=== PATIENT | male | born 1970 | race Caucasian/White ===

== ENCOUNTER 2019-05-01 10:48 | Observation (INO) | payer BC ==
[~2019-05-01] VITALS: Ht 182.9 cm; Wt 108.0 kg
[~2019-05-01 10:48] MED LIST: CIPROFLOXACIN500 M1 PO; HYDROCODON-ACE1 EAC7 PO
[2019-05-01 10:55] VITALS: BP 156/99
[2019-05-01] MEDS ORDERED: LISINOPRIL2.5 MG (10:59)
[2019-05-01 11:20] LABS: ABSOLUTE BASOPHILS 0.1 thou/uL (0.0-0.2); ABSOLUTE EOSINOPHILS 0.2 thou/uL (0.0-0.7); ABSOLUTE LYMPHOCYTES 1.7 thou/uL (0.8-5.3); ABSOLUTE MONOCYTES 0.4 thou/uL (0.0-1.2); BASOPHILS 0.9 %; EOSINOPHILS 2.9 %; HEMATOCRIT 45.4 % (42.0-52.0); HEMOGLOBIN 15.9 gm/dL (14.0-18.0); LYMPHOCYTES 26.1 %; MCH 31.4 pg (26.0-34.0); MCV 89.6 fL (80.0-100.0); MONOCYTES 6.7 %; MPV 8.6 fl. (7.2-11.1); NUCLEATED RBCS 0 /100WBC; PLATELET COUNT* 232 thou/uL (150-400); POLYS 63.4 %; RBC 5.07 mil/uL (4.50-6.00); RDW-CV 12.8 % (10.5-14.5); WBC 6.3 thou/uL (4.0-11.0)
[2019-05-01 11:36] LABS: POTASSIUM 3.8 mmol/L (3.5-5.1)
[2019-05-01 11:45] LABS: ALBUMIN 4.1 g/dL (3.4-5.0); TOTAL BILIRUBIN 0.4 mg/dL (<0.1-1.0); TOTAL PROTEIN 8.1 g/dL (6.4-8.2)
--- NOTE | 2019-05-01 15:16 | EKG ---
[place] [address] ELECTROCARDIOGRAM REPORT Name: JEN SULTANAYDTheo Hernandez Room: [address] M.R.#: [id number] Admission: 05/01/19 Attend Phys: Heidi Barron Discharge: Date of : 68 Report #: [id number] THIS REPORT FOR: //name// [facility] ED Test Date: 2019-05-01 Test Time: 10:54:33 Pat Name: TERRANCE SULTANA Department: Room: [facility] Gender: M [employer] Switchman: KYRIE : 1970 Requested By: Carmelina Salmeron Order Number: [id number] MD: Bladimir Callahan Measurements Intervals [place] Rate: 84 P: 38 OR: 167 QRS: -60 QRSD: 103 T: 55 QT: 364 QTc: 431 Interpretive Statements Sinus rhythm Inferior infarct, old Lateral leads are also involved Baseline wander in lead(s) V2 No previous ECG available for comparison Electronically Signed On 05-01-2019 15:15:58 [employer] by Bladimir Callahan [email or web address] <ELECTRONICALLY SIGNED> By: Bladimir Callahan MD, [facility] 05/01/19 1515 1054 1054 Bladimir Callahan MD, [facility] /EPI
[2019-05-01 16:13] VITALS: BP 116/83
[2019-05-01 16:30] VITALS: BP 141/94
--- NOTE | 2019-05-01 17:29 | NUR ---
RECEIVED PT FROM ER AT 1630. GET SITUATED TO ROOM. TELE IN PLACED TRACING SR ON MONITOR. AOX4, UP SBA, O2 SAT 90'S RA. PT DENIES CHEST PAIN. URINE COLLECTED. PT FOR CARDIOLOGY CONSULT ADMISSION ASSESSMENT CHARTED. VSS, HOURLY ROUNDING, CALL LIGHT WITHIN REACH, WILL CONTINUE TO MONITOR.
[2019-05-01 18:44] LABS: AMP/METHAMP Negative (Negative); BARBITURATES Negative (Negative); BENZODIAZEPINES Negative (Negative); COCAINE Negative (Negative); METHADONE Negative (Negative); OPIATES Negative (Negative); PCP Negative (Negative); THC Negative (Negative)
[2019-05-01 19:40] VITALS: BP 139/94
[2019-05-02] VITALS: BP 133/89
[2019-05-02 02:06] LABS: GLYCOHEMOGLOBIN (HGB A1C) 5.2 % (4.8-5.6)
[2019-05-02 04:00] VITALS: BP 130/85
--- NOTE | 2019-05-02 04:32 | NUR ---
ASSUMED CARE OF PT AT 1900. PT IS ALERT AND ORIENTED. VSS. PERRLA. NO COMPLAINTS OF PAIN. STEADY GAIT. PT IS IN SINUS RYTHM ON THE TELEMETRY. PT IS RESTING COMFORTABLY IN BED. RESPIRATIONS ARE EVEN AND NONLABORED. WILL CONTINUE TO MONITOR PT.
[2019-05-02 04:36] LABS: HEMATOCRIT 45.3 % (42.0-52.0); HEMOGLOBIN 15.8 gm/dL (14.0-18.0); MCH 31.1 pg (26.0-34.0); MCHC 34.9 g/dL (28.0-37.0); RBC 5.09 mil/uL (4.50-6.00); RDW-CV 12.9 % (10.5-14.5); WBC 5.8 thou/uL (4.0-11.0)
[2019-05-02 05:05] LABS: CALCIUM 8.8 mg/dL (8.5-10.1); CREATININE 1.1 mg/dL (0.6-1.3); POTASSIUM 4.6 mmol/L (3.5-5.1)
[2019-05-02 05:17] LABS: CHOLESTEROL 188 mg/dL (<200); HDL CHOLESTEROL 35 mg/dL (>40); LDL CHOLESTEROL 125 mg/dL (<100); TC:HDL 5.4 Ratio (Not establshd); TRIGLYCERIDE 142 mg/dL (<150); VLDL 28 mg/dL (<40)
[2019-05-02 05:21] LABS: SERUM ASSESSMENT Clear
[2019-05-02 08:00] VITALS: BP 129/80
--- NOTE | 2019-05-02 10:17 | NUR ---
ASSUMED PT CARE AT 0800, AOX4, UP AD ROCIO, O2 SAT 90'S RA, TRACING SR ON TELE. PT DENIES CHEST PAIN. PT NPO. PT FOR CARDIAC STRESS TEST. VSS, AM ASSESSMENT CHARTED, HOURLY ROUNDING, WILL CONTINUE TO MONITOR.
[2019-05-02 12:56] VITALS: BP 121/82
[2019-05-02 16:28] VITALS: BP 117/78
[2019-05-02 16:33] VITALS: BP 117/78
--- NOTE | 2019-05-02 18:19 | CARDNUC ---
[place] [address] CARDIAC NUCLEAR IMAGING REPORT Name: TERRANCE SULTANA [address]#: [id number] Admission: 05/01/19 Attend Phys: Heidi mina Sa Discharge: Date of : 68 Date of Service: 05/02/191818 Report #: [id number] THIS REPORT FOR: //name// APPROVED REPORT Study performed: 05/02/2019 13:33:44 Exam: Nuclear Stress Test Indication: Chest pain, left arm pain, dyspnea, diaphoresis. Patient Location: In-Patient Room #: 219 Stress Tech: Hannah Amezquita Stress Nurse: Nadine Ace RN Ht: 6 ft 0 in Wt: 238 lbs BSA: 2.29 m2 BMI: 32.27 Medical History Medical History: Angina radiating to left arm, Diaphoresis, Dyspnea, HTN, Obesity. Medications: Atorvastatin, Lisinopril, NTG. Allergies: Bismuth Subsalicylate. Cardiac Risk Factors: FHX of CAD, HTN, SOB. Previous Cardiac Procedures: None Pretest Chest Pain Characteristics: No chest pain Exercise History: Physically active Physical Disabilities: None Meds Held (24 hrs): NTG Stress Test Details Stress Test: Exercise stress testing was performed using a León protocol. HR Resting HR: 76 bpm Max Heart Rate (APMHR): 171 bpm Max HR Achieved: 171 bpm Target HR (85% APMHR): 145 bpm % of APMHR: 100 Recovery HR: 107 bpm BP Resting BP: 125/83 mmHg Max BP: 199/91 mmHg ECG Resting ECG: Sinus Rhythm Stress ECG: [place] [address] CARDIAC NUCLEAR IMAGING REPORT Name: TERRANCE SULTANA Room: [address]#: [id number] Admission: 05/01/19 Attend Phys: Heidi mina Sa Discharge: Date of : 68 Date of Service: 05/02/19 1819 Report #: [id number] Change: None Arrhythmia: None, None Recovery ECG: Sinus Rhythm Recovery ST Change: None Recovery Arrhythmia: None Clinical Reason for Termination: Completed protocol, Maximal effort, Target HR achieved. Stress Symptoms: Dyspnea Exercise duration: 8 min 30 sec Exercise capacity: 10.16 METs The patient exhibited good exercise tolerance. There were no significant EKG changes with exercise. Nurse Comments A 48 year old male inpatient presented for León Protocol Nuclear Stress Test r/t CP radiating to left arm, Dyspnea with Diaphoresis. Patient tolerated treadmill well. Recovery unremarkable. Exercise capacity reduced - normal range. Patient was escorted by staff to Nuclear Medicine for images. Patient was stable with no complaints at that time. Stress ECG Conclusion The baseline 12-lead EKG shows sinus rhythm without significant ST or T wave abnormality. EKGs obtained during and post exercise showed sinus rhythm and sinus tachycardia with no significant ST or T wave changes when compared to baseline. NM EXAM: Myocardial Perfusion REST/STRESS Imaging Protocol: Rest Tc-99m/Stress Tc-99m 1 day Resting Data Rest SPECT myocardial perfusion imaging was performed in supine position 30 minutes following the intravenous injection of 10.7 mCi of Tc-99m Sestamibi. Time of rest injection: 11:35 The images were gated to evaluate regional wall motion and calculate left ventricular ejection fraction. Administration Route: IV Administration Site: Left AC Exercise Stress At peak stress, the patient was injected intravenously with 35.6mCi of Tc-99m Sestamibi. Time of stress injection: 13:50 [place] [address] CARDIAC NUCLEAR IMAGING REPORT Name: RDTERRANCE A [address]#: [id number] Admission: 05/01/19 Attend Phys: Heidi mina Sa Discharge: Date of : 68 Date of Service: 05/02/19 1819 Report #: [id number] Administration Route: IV Administration Site: Left AC Heart Rate at time of stress injection: 171 bpm. Patient continued to exercise for 1 minute(s). Gated Stress SPECT was performed 30 minutes after stress injection. The images were gated to evaluate regional wall motion and calculate left ventricular ejection fraction. Prone imaging was performed. Study Quality Study: Good Artifact: No artifact Study Data At rest, the left ventricular ejection fraction was 66%.. Post stress, the left ventricular ejection was 67%.. TID = 0.81. Perfusion Normal left ventricular perfusion. Wall Motion Normal left ventricular wall motion. Nuclear Conclusion ECG Findings: negative for ischemia Clinical Findings: negative for ischemia Nuclear Findings: negative for ischemia Exercise Capacity: fair Left Ventricular Function: normal Risk Study: low Myocardial perfusion images show no defect to suggest infarct or ischemia. Left ventricular systolic function appears normal on gated studies. This is a low risk study. <Conclusion> The baseline 12-lead EKG shows sinus rhythm without significant ST or T wave abnormality. EKGs obtained during and post exercise showed sinus rhythm and sinus tachycardia with no significant ST or T wave changes when compared to baseline. <ELECTRONICALLY SIGNED> By: Oleg Ralph MD, FACC 05/02/191818 18 18 Oleg Ralph MD, FACC /INF
--- NOTE | 2019-05-02 19:01 | NUR ---
STRESS TEST CAME BACK NEGATIVE. CT NECK SUGGEST FOLLOW ULTRASOUND 5-6 MOS. RELAYED TO PT. DISCHARGE DISCUSS WITH THE PT, REMINDED TO FOLLOW UP WITH PCP IN 2 WEEKS. IV, TELE REMOVED. LEFT THE UNIT AMBULATORY AT 1830
== END 2019-05-02 18:30 | disposition home or self-care (01) ==
LOC: M.ERS 10:48 → M.TBA-ER 12:36 → M.2W 12:36
PROVIDERS: Nurse Practitioner Family; ADMIT Family Medicine
DX: I25.110 Atherosclerotic heart disease of native coronary artery with unstable angina pectoris (principal); R59.0 Localized enlarged lymph nodes; I10 Essential (primary) hypertension; K21.9 Gastro-esophageal reflux disease without esophagitis; E66.9 Obesity, unspecified; Z68.32 Body mass index [BMI] 32.0-32.9, adult; E78.5 Hyperlipidemia, unspecified; Z79.82 Long term (current) use of aspirin; Z79.899 Other long term (current) drug therapy; Z82.49 Family history of ischemic heart disease and other diseases of the circulatory system